=== PATIENT | female | born 1940 | race Caucasian/White ===

== ENCOUNTER 2016-11-21 10:24 | Emergency (ER) | payer MEDICARE, OTHER ==
--- NOTE | 2016-11-21 11:18 | UC ---
UC General HPI - HPI Summary HPI Summary: complaint of chronic diarrhea since 02/2016 seen in 09/2016- Dr Gross- did a fecal blood sample was positive has appt for 11/30/16 for colonoscopy more frequent diarrhea- every 20 -30 minutes and worsening for months abdominal pain and cramping before bowel movements only during the last3 days she has been vomiing approx every8 hours able to drink small amounts of water but cannot eat any solids for 3 days feel weak and fatigue , urinating more frequently- denies pain denies dizziness,fever ,shortness of breath ,chest pain - History of Current Complaint Hx Obtained From: Patient <Yadira Silva - Last Filed: 11/21/16 12:04> <Priscila Fuentes - Last Filed: 11/21/16 13:01> - History of Current Complaint Chief Complaint: UCGI Stated Complaint: VOMITING/DIARRHEA Time Seen by Provider: 11/21/16 11:05 - Allergy/Home Medications Allergies/Adverse Reactions: Allergies Allergy/AdvReac Type Severity Reaction Status Date / Time Sulfa Drugs AdvReac Nausea Verified 11/21/16 10:38 Home Medications: Home Medications Lactobacillus [Probiotic] 1 cap PO DAILY 11/21/16 [History Confirmed 11/21/16] Naproxen Sodium [Naproxen Sodium 220 mg cap] 220 mg PO PRN 11/21/16 [History] PMH/Surg Hx/FS Hx/Imm Hx Previously Healthy: No - chroinic pain Psychological History: Anxiety, Depression - Surgical History Surgical History: Yes Surgery Procedure, Year, and Place: 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; TONSILECTOMY; LUMBAR W/TITANIUM RODS; Lt TOTAL HIP - 11/27/10 - Family History Known Family History: Positive: Cardiac Disease - father, Hypertension - father Negative: Diabetes - Social History Occupation: Retired Lives: Alone Alcohol Use: Occasionally Substance Use Type: None Smoking Status (MU): Never Smoked Tobacco <Yadira Silva - Last Filed: 11/21/16 12:04> Review of Systems Constitutional: Fatigue Skin: Negative Eyes: Negative ENT: Negative Respiratory: Negative Cardiovascular: Negative Gastrointestinal: Vomiting, Diarrhea, Nausea Genitourinary: Frequency Motor: Negative Neurovascular: Negative Musculoskeletal: Negative Neurological: Negative Psychological: Negative All Other Systems Reviewed And Are Negative: Yes <Yadira Silva - Last Filed: 11/21/16 12:04> Physical Exam Triage Information Reviewed: Yes Appearance: No Pain Distress, Ill-Appearing, Thin Vital Signs: Initial Vital Signs Temp 97.5 F 11/21/16 10:30 Pulse 114 11/21/16 10:30 Resp 16 11/21/16 10:30 BP 130/54 11/21/16 10:30 Pulse Ox 99 11/21/16 10:30 Vital Signs Reviewed: Yes Eyes: Positive: Conjunctiva Clear ENT: Positive: Pharynx normal, TMs normal Neck: Positive: No Lymphadenopathy Respiratory: Positive: Lungs clear, Normal breath sounds, No respiratory distress, No accessory muscle use Cardiovascular: Positive: Pulses Normal, Tachycardia Abdomen Description: Positive: Nontender, No Organomegaly, Soft. Negative: CVA Tenderness (R), CVA Tenderness (L) Bowel Sounds: Positive: Present Musculoskeletal: Positive: No Edema Neurological: Positive: Alert Psychological Exam: Normal Skin Exam: Normal <Yadira Silva - Last Filed: 11/21/16 12:04> Vital Signs: Initial Vital Signs Temp 97.5 F 11/21/16 10:30 Pulse 114 11/21/16 10:30 Resp 16 11/21/16 10:30 BP 130/54 11/21/16 10:30 Pulse Ox 99 11/21/16 10:30 <Priscila Fuentes - Last Filed: 11/21/16 13:01> Course/Dx - Course Course Of Treatment: exam completed. patient with chronic diarrhea and acute N /V for the last 3-4 days. tachycadia- BP normla. d/t age and signs of dehydration needs further evaluation in the emergency department. pt refusesEMS transfer and will have her friend drive her to the ED for further evaluation. - Differential Dx - Multi-Symptom Provider Diagnoses: chronic diarrhea. acute nausea and vomiting <Yadira Silva - Last Filed: 11/21/16 12:04> Discharge <Yadira Silva - Last Filed: 11/21/16 12:04> <Priscila Fuentes - Last Filed: 11/21/16 13:01> - Discharge Plan Condition: Stable Disposition: HOME Patient Education Materials: Acute Nausea and Vomiting (ED), Chronic Diarrhea ( ED), Dehydration (ED) Referrals: Liu Mukherjee MD [Primary Care Provider] - Additional Instructions: It is recommended that you have your friend drive you to the emergency department for further evaluation of your nausea, vomiting and chronic diarrhea. Your pulse is elevated and you have signs and symptoms of dehydration which patty to be evaluated and treated today. Attestation Statement User Type: Provider - I was available for consult. This patient was seen by the [facility]. The patient was not presented to, seen by, or examined by me. -Moni <Priscila Fuentes - Last Filed: 11/21/16 13:01>
[2016-11-21 12:12] VITALS: BP 109/62
== END 2016-11-21 12:02 | disposition home or self-care (01) ==
LOC: UCEAST 10:24
DX: K52.9 Noninfective gastroenteritis and colitis, unspecified (principal); R11.2 Nausea with vomiting, unspecified; F41.9 Anxiety disorder, unspecified; F32.9 Major depressive disorder, single episode, unspecified; Z96.611 Presence of right artificial shoulder joint; Z96.642 Presence of left artificial hip joint; Z88.2 Allergy status to sulfonamides
CPT/HCPCS: 99211; G0463

== ENCOUNTER 2016-11-21 12:32 | Inpatient (IN) | payer MEDICARE, OTHER ==
[2016-11-21 16:24] LABS: Hematocrit 40 % (35-47); Hemoglobin 13.5 g/dl (12.0-16.0); Mean Corpuscular HGB Conc 34 g/dl (31-36); Mean Corpuscular Hemoglobin 30 pg (27-31); Mean Corpuscular Volume 90 fL (80-97); Mean Platelet Volume 8 um3 (7.4-10.4); Red Blood Count 4.46 10^6/ul (4.0-5.4); Red Cell Distribution Width 13 % (10.5-15); White Blood Count 7.6 10^3/ul (3.5-10.8)
[2016-11-21 16:43] LABS: Albumin 3.6 g/dL (3.2-5.2); BUN/Creatinine Ratio 16.2 (8-20); C Reactive Protein 94.88 mg/L (< 5.00); Calcium 9.4 mg/dL (8.6-10.3); EGFR Non-African American 32.7 (>60); Globulin 3.8 g/dL (2-4); Potassium 3.2 mmol/L (3.5-5.0); Total Bilirubin 1.2 mg/dL (0.2-1.0); Total Protein 7.4 g/dL (6.4-8.9)
[2016-11-21] MEDS ORDERED: NS 0.9% 1000 ML* 1,000 ML IV ONE (16:50)
[2016-11-21] MEDS ORDERED: Ondansetron INJ* 2 MG/ML VIAL IV ONE (16:50)
[2016-11-21 17:18] LABS: Troponin I 0.01 ng/mL (<0.04)
--- NOTE | 2016-11-21 17:40 | ADMNOTE ---
Subjective Date of Service: 11/21/16 Interval History: ADMISSION HISTORY AND PHYSICAL EXAM: Allergies Allergy/AdvReac Type Severity Reaction Status Date / Time Sulfa Drugs AdvReac Nausea Verified 11/21/16 10:38 Home Medications Medication Instructions Recorded Confirmed Type Calcium Carbonate-Vitamin D 1 tab PO DAILY 07/07/15 07/20/15 History [Calcium + D3 600-200 mg-Unit] DULoxetine DR CAP* [Cymbalta CAP*] 60 mg PO QAM 07/07/15 07/20/15 History Folic Acid TAB* [Folvite TAB*] 1 mg PO DAILY 07/07/15 07/20/15 History Magnesium [Magnesium Sulfate] 70 mg PO DAILY 07/07/15 07/20/15 History Methotrexate TAB* 4 tab PO WEEKLY 07/07/15 07/20/15 History busPIRone TAB* [Buspar TAB*] 30 mg PO TID 07/07/15 07/20/15 History traMADol TAB* [Ultram*] 50 mg PO QAM PRN 07/07/15 07/20/15 History Fish Oil 1 tab 07/20/15 History Lactobacillus [Probiotic] 1 cap PO DAILY 11/21/16 11/21/16 History Naproxen Sodium [Naproxen Sodium 220 mg PO PRN 11/21/16 History 220 mg cap] HPI: Patient developed emesis 4 days ago. Liquids and solids cme back up whenever she ate or drank. Today she only had electrolyte water. She has had diarrhea chronically and is scheduled for a colonoscopy to evaluate that. Family History: Findings - Father of [place] age 80, mother of dementia age 93. Social History: Findings - , lives alone. No alcohol or tobacco use. SDM is her ollieerica Beckford [place] in [place]. Past Medical History: Findings - PMR, last took MTX about 6 mos ago. Lumbar spine "wired". L SIMON, R shoulder replacement. BL cataract sx. Review of Systems - Measurements Intake and Output: Intake and Output Last 24 Hours 11/19/16 11/20/16 11/21/16 11/22/16 06:59 06:59 06:59 06:59 Weight 142 lb - Review of Systems Constitutional Symptoms: Positive: Weight Loss - 10 lbs. Dermatology: Positive: Normal HEENT: Positive: Normal Eyes: Positive: Normal Thyroid: Positive: Normal Pulmonary: Positive: Normal Cardiology: Positive: Normal Gastroenterology: Positive: Nausea, Vomiting, Diarrhea Genital - Urinary: Positive: Normal Musculoskeletal: Positive: Joint Pain Endocrinology: Positive: Normal Hematologic/Lymphatic: Negative: Anemia, Easy Brusing, Hx Leukemia, Hx Lymphoma, Use of Anticoagulant, Use of Antiplatelet Drugs, Other Neurology: Positive: Normal Psychiatry: Positive: Normal Allergic/Immunologic: Negative: Hx Anaphylaxis, Hx Angioedema, Hx Environmental, Hx Seasonal, Athsma, Hx HIV, Immunocompromise, Swollen Glands LymphNodes, Other Objective Active Medications: Heparin Sodium (Porcine) (Heparin Vial(*)) 5,000 units SUBCUT Q8HR МАРИ[facility] Sodium Chloride (Ns 0.9% 1000 Ml*) 1,000 mls @ 1,000 mls/hr IV .PER RATE ONE Stop: 11/21/16 17:49 Last Admin: 11/21/16 17:11 Dose: 1,000 mls/hr Potassium Chloride 20 meq/ (Lactated Ringer's) 1,010 mls @ 151.5 mls/hr IVPB Q6H [facility] Vital Signs 11/21/16 11/21/16 11/21/16 12:37 13:45 16:09 Temperature 98.2 F 97.9 F Pulse Rate 99 102 Respiratory 15 16 Rate Blood Pressure 100/66 95/58 118/58 (mmHg) O2 Sat by Pulse 100 95 Oximetry 11/21/16 11/21/16 11/21/16 16:11 16:30 17:00 Temperature Pulse Rate 89 93 89 Respiratory Rate Blood Pressure 113/60 122/67 (mmHg) O2 Sat by Pulse 100 99 100 Oximetry Oxygen Devices in Use Now: None Appearance: Alert, partly up on ED stretcher. In fair spirits. Looks comfortable. Ears/Nose/Mouth/Throat: Clear Oropharnyx, Mucous Membranes Moist Neck: NL Appearance and Movements; NL JVP, No Thyroid Enlargement, Masses Respiratory: Symmetrical Chest Expansion and Respiratory Effort, Clear to Auscultation, Clear to Percussion Cardiovascular: NL Sounds; No Murmurs; No JVD, RRR, No Edema, - Abdominal: - - Sl distended, soft, mildly diffusely tender. Gurgling BS. Extremities: No Edema, No Clubbing, Cyanosis, - Skin: No Rash or Ulcers, No Nodules or Sclerosis, - Neurological: Alert and Oriented x 3, NL Sensation Result Diagrams: 11/21/16 16:10 11/21/16 16:10 Additional Lab and Data: Lab Results 11/21/16 Range/Units 16:10 WBC 7.6 (3.5-10.8) 10^3/ul RBC 4.46 (4.0-5.4) 10^6/ul Hgb 13.5 (12.0-16.0) g/dl Hct 40 (35-47) % MCV 90 (80-97) fL MCH 30 (27-31) pg MCHC 34 (31-36) g/dl RDW 13 (10.5-15) % Plt Count 317 (150-450) 10^3/ul MPV 8 (7.4-10.4) um3 Neut % (Auto) 56.2 (38-83) % Lymph % (Auto) 24.3 L (25-47) % [place] % (Auto) 17.6 H (1-9) % Eos % (Auto) 1.1 (0-6) % Baso % (Auto) 0.8 (0-2) % Absolute Neuts (auto) 4.3 (1.5-7.7) 10^3/ul Absolute Lymphs (auto) 1.8 (1.0-4.8) 10^3/ul Absolute Monos (auto) 1.3 H (0-0.8) 10^3/ul Absolute Eos (auto) 0.1 (0-0.6) 10^3/ul Absolute Basos (auto) 0.1 (0-0.2) 10^3/ul Absolute Nucleated RBC 0 10^3/ul Nucleated RBC % 0 Assess/Plan/Problems-Billing Assessment: - Patient Problems (1) Vomiting Current Visit: Yes Status: Acute Code(s): R11.10 - VOMITING, UNSPECIFIED SNOMED Code(s): 725696536 Comment: Hx and PE c/w SBO. CT pending. Ice chips diet. IV fluid LR + KCL. (2) ROMMEL (acute kidney injury) Current Visit: Yes Status: Acute Code(s): N17.9 - ACUTE KIDNEY FAILURE, UNSPECIFIED SNOMED Code(s): 64621851 Comment: IV fluid LR + KCL. BMP 8/3. (3) Diarrhea Current Visit: Yes Status: Acute Code(s): R19.7 - DIARRHEA, UNSPECIFIED SNOMED Code(s): 55444132 Comment: Outpt colonoscopy was scheduled.
[2016-11-21] MEDS ORDERED: Iodixanol* (CONTRAST) 320 MG/ML 100 ML SDV IV ONE (19:12)
--- NOTE | 2016-11-21 20:03 | RAD ---
INDICATION: Diarrhea. Vomiting. Nausea. COMPARISON: Lumbar spine December 16, 2013 TECHNIQUE: Axial source images were obtained from the hemidiaphragms to the symphysis pubis following administration of oral and intravenous contrast. 80 mL Visipaque 320 was utilized. Coronal and sagittal reconstructed images were acquired. Lung bases: The lung bases are clear. Liver: The liver is normal in size. There are no masses. There is no ductal dilatation. Gallbladder: There are no calcified gallstones. There is no evidence of wall thickening or pericholecystic fluid. Spleen: The spleen is normal in size. There are no masses. Pancreas: There is no focal pancreatic mass. The pancreatic duct is mildly prominent. Adrenal glands: There is no evidence of adrenal mass. Kidneys: The kidneys are normal in size and position. There are prompt nephrograms and there is prompt excretion bilaterally. There are no renal parenchymal masses. There is no evidence of nephrolithiasis. Adenopathy: There is no evidence of adenopathy by size criteria. Fluid collections: There are no free or localized fluid collections. Vessels:There are mild atherosclerotic changes involving the aorta and iliac vessels. There is no focal aneurysm. The IVC appears normal. GI tract: There are no CT abnormality upper GI tract. There is minor diffuse mucosal thickening of the colon. This represents a nonspecific finding. There are no findings of obstruction or perforation. Pelvic organs: Limited evaluation due to beam hardening artifact from lumbar fusion and left hip arthroplasty. Bladder: Not well evaluated due to beam hardening artifact from orthopedic hardware. Abdominal and pelvic soft tissues: The extraperitoneal abdominal and pelvic soft tissues appear normal.. Osseous structures: Lumbar fusion T12-L4. Chronic compression deformity L2. Other: None IMPRESSION: 1. Mild nonspecific pancreatic ductal prominence. 2. Mild diffuse thickening of the colonic mucosa may be related to mild colitis. 3. L2-L4 lumbar fusion. Chronic L2 compression fracture. Left hip arthroplasty.
[2016-11-21 22:07] LABS: Urine Bacteria Absent (Absent); Urine Bilirubin Negative (Negative); Urine Glucose Negative (Negative); Urine Nitrite Negative (Negative)
[2016-11-21] MEDS: Heparin VIAL(*) 5000 UNITS/ML VIAL (FIVE THOUSAND) SUBCUT SCH (23:00)
[2016-11-22] MEDS: Heparin VIAL(*) 5000 UNITS/ML VIAL (FIVE THOUSAND) SUBCUT SCH ×3 (05:49→22:18)
[2016-11-22 05:53] LABS: Calcium 8.7 mg/dL (8.6-10.3); EGFR African American 55.5 (>60); EGFR Non-African American 43.1 (>60); Potassium 3.4 mmol/L (3.5-5.0)
--- NOTE | 2016-11-22 07:39 | PN ---
Subjective Date of Service: 11/22/16 Interval History: No pain. Somewhat thirsty. No new c/o. Family History: Findings - Father of [place] age 80, mother of dementia age 93. Social History: Findings - , lives alone. No alcohol or tobacco use. SDM is her jennifer Fernando in [place]. Past Medical History: Findings - PMR, last took MTX about 6 mos ago. Lumbar spine "wired". L SIMON, R shoulder replacement. BL cataract sx. Objective Active Medications: Heparin Sodium (Porcine) (Heparin Vial(*)) 5,000 units SUBCUT Q8HR [facility] Last Admin: 11/22/16 05:49 Dose: Not Given Potassium Chloride 20 meq/ (Lactated Ringer's) 1,010 mls @ 151.5 mls/hr IVPB Q6H [facility] Last Admin: 11/22/16 03:49 Dose: 151.5 mls/hr Vital Signs 11/21/16 11/21/16 11/21/16 17:30 17:58 18:00 Temperature 97.9 F Pulse Rate 81 81 84 Respiratory 18 Rate Blood Pressure 112/87 112/87 (mmHg) O2 Sat by Pulse 100 99 Oximetry 11/21/16 11/21/16 11/21/16 18:56 18:58 23:34 Temperature 97.7 F 97.7 F Pulse Rate 94 94 Respiratory 22 22 20 Rate Blood Pressure 133/54 133/54 (mmHg) O2 Sat by Pulse 100 100 Oximetry 11/21/16 11/22/16 23:59 03:22 Temperature 98.6 F 98.0 F Pulse Rate 81 80 Respiratory 16 16 Rate Blood Pressure 116/53 109/48 (mmHg) O2 Sat by Pulse 99 100 Oximetry Oxygen Devices in Use Now: None Appearance: Alert, sitting up in bed. In good spirits. Looks comfortable. Eyes: No Scleral Icterus Respiratory: Symmetrical Chest Expansion and Respiratory Effort, Clear to Auscultation, Clear to Percussion Cardiovascular: NL Sounds; No Murmurs; No JVD, RRR, No Edema Abdominal: NL Sounds; No Tenderness; No Distention, No Hepatosplenomegaly Extremities: No Edema, No Clubbing, Cyanosis, - Skin: No Rash or Ulcers, No Nodules or Sclerosis, - Neurological: Alert and Oriented x 3, NL Sensation Result Diagrams: 11/21/16 16:10 08/03/17 05:24 Additional Lab and Data: Lab Results 11/21/16 Range/Units 16:10 WBC 7.6 (3.5-10.8) 10^3/ul RBC 4.46 (4.0-5.4) 10^6/ul Hgb 13.5 (12.0-16.0) g/dl Hct 40 (35-47) % MCV 90 (80-97) fL MCH 30 (27-31) pg MCHC 34 (31-36) g/dl RDW 13 (10.5-15) % Plt Count 317 (150-450) 10^3/ul MPV 8 (7.4-10.4) um3 Neut % (Auto) 56.2 (38-83) % Lymph % (Auto) 24.3 L (25-47) % [place] % (Auto) 17.6 H (1-9) % Eos % (Auto) 1.1 (0-6) % Baso % (Auto) 0.8 (0-2) % Absolute Neuts (auto) 4.3 (1.5-7.7) 10^3/ul Absolute Lymphs (auto) 1.8 (1.0-4.8) 10^3/ul Absolute Monos (auto) 1.3 H (0-0.8) 10^3/ul Absolute Eos (auto) 0.1 (0-0.6) 10^3/ul Absolute Basos (auto) 0.1 (0-0.2) 10^3/ul Absolute Nucleated RBC 0 10^3/ul Nucleated RBC % 0 Assess/Plan/Problems-Billing Assessment: - Patient Problems (1) Vomiting Current Visit: Yes Status: Acute Code(s): R11.10 - VOMITING, UNSPECIFIED SNOMED Code(s): 222398010 Comment: CT shows no evidence of obstruction. Continue ice chips diet. UGI ordered. (2) ROMMEL (acute kidney injury) Current Visit: Yes Status: Acute Code(s): N17.9 - ACUTE KIDNEY FAILURE, UNSPECIFIED SNOMED Code(s): 01836128 Comment: Improved. BMP 8/4. Continue IV fluids. (3) Diarrhea Current Visit: Yes Status: Acute Code(s): R19.7 - DIARRHEA, UNSPECIFIED SNOMED Code(s): 91325692 Comment: Outpt colonoscopy was scheduled.
--- NOTE | 2016-11-22 08:50 | RAD ---
INDICATION: Emesis after eating evaluate for obstruction. COMPARISON: Correlation is made with a prior CT of the abdomen and pelvis from November 21, 2016. Technique: A single contrast upper GI series examination was performed. Approximately 2.9 minutes of intermittent fluoroscopic guidance were used during the exam. Findings: The esophageal peristalsis appeared normal. There is a small sliding type hiatal hernia. No gastroesophageal reflux was noted. The patient is status post posterior spinal fusion of the lumbar spine with pedicle screws and metallic rods which project over the stomach limiting the exam slightly. The esophageal gastric and duodenal mucosal pattern appeared to be within normal limits. No persistent filling defects or collections of barium are noted. There is no evidence for inflammatory change. The stomach emptied normally. The proximal small bowel appeared to be within normal limits. IMPRESSION: SMALL HIATAL HERNIA, OTHERWISE UNREMARKABLE STUDY. CPT II Codes: 6045F
[2016-11-22] MEDS: Loperamide CAP* 2 MG PO SCH ×2 (16:21→22:17)
[2016-11-23 05:56] LABS: BUN/Creatinine Ratio 11.7 (8-20); Calcium 8.7 mg/dL (8.6-10.3); EGFR African American 74.3 (>60); EGFR Non-African American 57.7 (>60)
[2016-11-23] MEDS: Heparin VIAL(*) 5000 UNITS/ML VIAL (FIVE THOUSAND) SUBCUT SCH (06:02)
--- NOTE | 2016-11-23 07:40 | PN ---
Progress Note - Progress Note Date of Service: 11/23/16 Note: Time spent on discharge 45 minutes.
[2016-11-23] MEDS: Loperamide CAP* 2 MG PO SCH (09:19)
[2016-11-23 09:21] VITALS: BP 118/55
--- NOTE | 2016-11-23 21:14 | DS ---
CC: Dr. Mukherjee; Dr. Cleveland DISCHARGE SUMMARY: DATE OF ADMISSION: DATE OF DISCHARGE: 11/23/16 HOSPITAL COURSE: This 76-year-old woman presented with vomiting for 4 days' duration. Both liquids and solids came back up whenever she ate or drank. On the day of admission, she only drank electrolyte water. She has chronic diarrhea and is scheduled for colonoscopy on 11/30/[address] Cleveland. The rest of the history and physical is detailed in the admission note. The patient was given intravenous fluids and antiemetics. She had a CT scan of the abdomen and pelvis and an upper GI series. She was found to have small hiatal hernia. The upper GI was otherwise unremarkable. The CT scan showed mild nonspecific pancreatic ductal prominence, mild diffuse thickening of the colonic mucosa, and an old L2-L4 lumbar fusion, and left hip arthroplasty. After these tests, the patient was able to eat or drink normally. She did have acute kidney injury. She also had hyponatremia, which I believe is related to her hypovolemia. The acute kidney injury and hyponatremia both resolved completely by the time of discharge. Her sodium was 137 on the day of discharge and creatinine 0.94, both at her baseline values. Potassium was little low at 3.0, but this should be able to be replenished from her diet. She was prescribed loperamide for her chronic diarrhea. She was told to take twice a day every day and to increase it to 3 times a day if she was having more than two bowel movements a day and to stop it completely if she had no bowel movement for 24 hours and to not to resume it until she had a bowel movement. As noted above, she is having a colonoscopy, 11/30/16. She will have less loperamide dose on the morning of 11/28/16. FINAL DIAGNOSES: 1. Transient vomiting, uncertain etiology. 2. Chronic diarrhea. 3. Acute kidney injury, resolved. 4. History of polymyalgia rheumatica. DISCHARGE MEDICATIONS: 1. Loperamide 2 mg b.i.d. to adjust as above. 2. Tramadol 50 mg every morning p.r.n. 3. Buspirone 30 mg as prescribed. 4. Duloxetine 60 mg daily. 5. Calcium carbonate with vitamin D 1 daily. 6. Magnesium sulfate as prescribed. 7. Naproxen 220 mg every 4 hours p.r.n. 8. Lactobacillus capsule daily. 9. [place]-3 fatty acids 1000 mg daily. [id number]/[facility] #: [id number] [facility]
--- NOTE | 2016-11-24 14:31 | ED ---
Janusz Durbin Rebecca, scribed for Wilver Denis MD on 11/21/16 at 1635 . Complex/Multi-Sys Presentation - HPI Summary HPI Summary: Pt is a 76 y/o F referred from [facility] who presents to ED c/o N/V/D. Diarrhea has been present since February (9 months) but has been worsening and increasing in frequency to every 20-30 minutes. Vomiting began 4 days ago with her only able to keep down small amounts of PO intake. Sx aggravated by PO intake, alleviated by nothing. Additionally notes abdominal pain (cramping), generalized weakness and feeling near-syncopal [employer]. Denies CP, SOB, fever, diaphoresis, chills. Pt has a colonoscopy scheduled for 11/30. No PMHx colitis. Patient notes that though a nurse's note reports her prison facility to be in [place], it is actually in [place]. - History Of Current Complaint Chief Complaint: EDAbdPain Time Seen by Provider: 11/21/16 16:08 Hx Obtained From: Patient Onset/Duration: Still Present Severity Currently: None Location: Pain At: - Abdominal cramping - resolved Aggravating Factor(s): PO intake Alleviating Factor(s): Nothing Associated Signs And Symptoms: Positive: Weakness - Generalized, Nausea, Vomiting, Diarrhea, Abdominal Pain - resolved. Negative: SOB, Chest Pain, Fever , Diaphoresis - Allergies/Home Medications Allergies/Adverse Reactions: Allergies Allergy/AdvReac Type Severity Reaction Status Date / Time Sulfa Drugs AdvReac Nausea Verified 11/21/16 10:38 Home Medications: Home Medications [place]-3 Fatty Acids (Nf) [Fish Oil (NF)] 1,000 mg PO DAILY 11/21/16 [History Confirmed 11/21/16] PMH/Surg Hx/FS Hx/Imm Hx Cardiovascular History: Denies: Hx Pacemaker/ICD GI History: Reports: Hx Ulcer - HX OF duodenal Musculoskeletal History: Reports: Hx Arthritis, Hx Rheumatoid Arthritis, Other Musculoskeletal History - ARTHRITIS Sensory History: Reports: Hx Cataracts - BILAT, Hx Contacts or Glasses - GLASSES Denies: Hx Hearing Aid Opthamlomology History: Reports: Hx Cataracts - BILAT, Hx Contacts or Glasses - GLASSES Psychiatric History: Reports: Hx Anxiety, Hx Depression Denies: Hx Panic Disorder - Cancer History Hx Chemotherapy: No Hx Radiation Therapy: No - Surgical History Surgery Procedure, Year, and Place: 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; TONSILECTOMY; LUMBAR W/TITANIUM RODS; Lt TOTAL HIP - 11/27/10 Hx Anesthesia Reactions: No Infectious Disease History: No Infectious Disease History: Denies: Traveled Outside the [place] in Last 30 Days - Family History Known Family History: Positive: Cardiac Disease - father, Hypertension - father Negative: Diabetes - Social History Alcohol Use: Rare Substance Use Type: Reports: None Smoking Status (MU): Never Smoked Tobacco Review of Systems Negative: Fever, Chills, Skin Diaphoresis Negative: Erythema Negative: Sore Throat Negative: Chest Pain Negative: Shortness Of Breath, Cough Positive: Abdominal Pain - Cramping - resolved, Vomiting, Diarrhea, Nausea Negative: dysuria, hematuria Negative: Myalgia, Edema Negative: Rash Neurological: Other - Negative dizziness Positive: Weakness - Generalized weakness [employer], Syncope - near syncopal [employer] All Other Systems Reviewed And Are Negative: Yes Physical Exam - Summary Physical Exam Summary: Constitutional: Well-developed, Well-nourished, Alert. (-) Distressed Skin: Warm, Dry HENT: Normocephalic; Atraumatic; Dry mucous membranes Eyes: Conjunctiva normal Neck: Musculoskeletal ROM normal neck. (-) JVD, (-) Stridor, (-) Tracheal deviation Cardio: Rhythm regular, rate normal, Heart sounds normal; Intact distal pulses; The pedal pulses are 2+ and symmetric. Radial pulses are 2+ and symmetric. (-) Murmur Pulmonary/Chest wall: Effort normal. (-) Respiratory distress, (-) Wheezes, (-) Rales Abd: Soft, (-) Tenderness, (-) Distension, (-) Guarding, (-) Rebound Musculoskeletal: (-) Edema Lymph: (-) Cervical adenopathy Neuro: Alert, Oriented x3 Psych: Mood and affect Normal Triage Information Reviewed: Yes Vital Signs On Initial Exam: Initial Vitals Temp Pulse Resp BP Pulse Ox 98.2 F 99 15 100/66 100 11/21/16 12:37 11/21/16 12:37 11/21/16 12:37 11/21/16 12:37 11/21/16 12:37 Vital Signs Reviewed: Yes - [place] Coma Scale Coma Scale Total: 15 Diagnostics - Vital Signs Vital Signs Temp Pulse Resp BP Pulse Ox 11/21/16 16:11 89 100 11/21/16 16:09 118/58 11/21/16 13:45 97.9 F 102 16 95/58 95 11/21/16 12:37 98.2 F 99 15 100/66 100 - Laboratory Lab Results: Lab Results 11/21/16 Range/Units 16:10 WBC 7.6 (3.5-10.8) 10^3/ul RBC 4.46 (4.0-5.4) 10^6/ul Hgb 13.5 (12.0-16.0) g/dl Hct 40 (35-47) % MCV 90 (80-97) fL MCH 30 (27-31) pg MCHC 34 (31-36) g/dl RDW 13 (10.5-15) % Plt Count 317 (150-450) 10^3/ul MPV 8 (7.4-10.4) um3 Neut % (Auto) 56.2 (38-83) % Lymph % (Auto) 24.3 L (25-47) % [place] % (Auto) 17.6 H (1-9) % Eos % (Auto) 1.1 (0-6) % Baso % (Auto) 0.8 (0-2) % Absolute Neuts (auto) 4.3 (1.5-7.7) 10^3/ul Absolute Lymphs (auto) 1.8 (1.0-4.8) 10^3/ul Absolute Monos (auto) 1.3 H (0-0.8) 10^3/ul Absolute Eos (auto) 0.1 (0-0.6) 10^3/ul Absolute Basos (auto) 0.1 (0-0.2) 10^3/ul Absolute Nucleated RBC 0 10^3/ul Nucleated RBC % 0 Result Diagrams: 11/21/16 16:10 11/21/16 16:10 Lab Statement: Any lab studies that have been ordered have been reviewed, and results considered in the medical decision making process. Complex Multi-Symp Course/Dx Assessment/Plan: Pt is a 76 y/o F referred from [facility] who presents to ED c/o N/V/ D. Diarrhea has been present since February (9 months) but has been worsening and increasing in frequency to every 20-30 minutes. Vomiting began 4 days ago with her only able to keep down small amounts of PO intake. Sx aggravated by PO intake. Additionally notes abdominal pain (cramping), generalized weakness and feeling near-syncopal [employer]. Denies CP, SOB, fever, diaphoresis, chills. Pt has a colonoscopy scheduled for 11/30. No PMHx colitis. Sodium of 126, CRP of 94.88, potassium of 3.2. In the ED course, pt was administered Zofran and Ns. Discussed care of pt with Dr. Ceron, hospitalist, who accepts pt for admission. She will be admitted with Dx of hyponatremia, hypokalemia, chronic diarrhea, vomiting and dizziness. She understands and agrees. Patient medications reviewed this visit. - Diagnoses Provider Diagnoses: Hyponatremia, Hypokalemia, Chronic diarrhea, Vomiting, Dizziness - Physician Notifications Discussed Care Of Patient With: Noé Ceron Time Discussed With Above Provider: 16:56 Instructed by Provider To: Other - Accepts pt for admission. Discharge - Discharge Plan Condition: Good Disposition: ADMITTED TO [facility] documentation as recorded by the Janusz anderson Rebecca accurately reflects the service I personally performed and the decisions made by me, Wilver Denis MD.
== END 2016-11-23 10:30 | disposition home or self-care (01) | DRG 392 ==
LOC: ED 12:32 → SSU 17:21
PROVIDERS: ADMIT Internal Medicine; ATTEND Internal Medicine
DX: R11.10 Vomiting, unspecified (principal); N17.9 Acute kidney failure, unspecified; E86.1 Hypovolemia; M06.9 Rheumatoid arthritis, unspecified; E87.1 Hypo-osmolality and hyponatremia; M19.90 Unspecified osteoarthritis, unspecified site; F41.9 Anxiety disorder, unspecified; F32.9 Major depressive disorder, single episode, unspecified; Z96.611 Presence of right artificial shoulder joint; R40.2412 Glasgow coma scale score 13-15, at arrival to emergency department; M35.3 Polymyalgia rheumatica; E87.6 Hypokalemia; K52.9 Noninfective gastroenteritis and colitis, unspecified; Z96.642 Presence of left artificial hip joint; K44.9 Diaphragmatic hernia without obstruction or gangrene; Z98.1 Arthrodesis status; Z88.2 Allergy status to sulfonamides; Z82.49 Family history of ischemic heart disease and other diseases of the circulatory system; Z98.42 Cataract extraction status, left eye; Z98.41 Cataract extraction status, right eye
CPT/HCPCS: 36415; 74177; 74246; 80048; 80053; 81003; 81015; 83605; 83690; 84484; 85025; 86140; 87077; 87086; 87186; 93005; 99211; 99283; A9270-GY; G0463; J1644; J2405; J3480; Q9967

== ENCOUNTER 2020-09-27 12:41 | Inpatient (IN) ==
[~2020-09-27 12:41] MED LIST: Buffered Lidocaine 1% SYRIN 1 ml INTRADERM ONE; Ketamine HCL 50 mg/ml 10 ml VIAL (500 MG) ONE; Lactated Ringers 1000 ml BAG 1,000 ML IV SCH; Lidocaine 2% PF 5 ML VIAL ONE; Propofol 10 MG/ML 20 ML BTL ONE
[2020-09-27] MEDS ORDERED: fentaNYL 100 mcg/2 ml 50 MCG/ML VIAL ONE ×4 (12:57→21:00)
[2020-09-27] MEDS ORDERED: ceFAZolin 2 GM PREMIX 2 GM/50 ML BAG ONE (13:32)
[2020-09-27] MEDS ORDERED: Rocuronium 50 mg VIAL 10 mg/ml 5 ml VIAL (50 mg) ONE ×2 (14:18→14:19)
[2020-09-27] MEDS ORDERED: fentaNYL 250 mcg/5 ml 50 MCG/ML 5 ml VIAL (250 MCG) ONE (17:06)
[2020-09-27] MEDS ORDERED: EPHEDrine (Pressors) 50 MG/ML VIAL ONE ×2 (17:32→18:34)
[2020-09-27] MEDS ORDERED: Dexamethasone IV 4 MG/ML VIAL 1 ml VIAL ONE (17:54)
[2020-09-27] MEDS ORDERED: Ondansetron 4 mg VIAL 2 MG/ML 2 ml VIAL ONE (17:54)
[2020-09-27] MEDS ORDERED: diPHENhydraMINE 25 mg TAB PO PRN (19:38)
[2020-09-27] MEDS ORDERED: Ondansetron 4 mg VIAL 2 MG/ML 2 ml VIAL IV PRN (19:38)
[2020-09-27] MEDS ORDERED: Ondansetron ODT 4 mg TAB 4 MG TAB PO PRN (19:38)
[2020-09-27] MEDS ORDERED: Morphine 2 MG/ML SYRINGE IV PRN (19:38)
[2020-09-27] MEDS ORDERED: Magnesium Hydroxide LIQ 30 ML UDC PO PRN (19:38)
[2020-09-27] MEDS ORDERED: diPHENhydraMINE IV 50 MG/ML 1 ml VIAL (BENADRYL) IV PRN (19:38)
[2020-09-27] MEDS ORDERED: Lactulose 30 ml UDC PO PRN (19:38)
[2020-09-27] MEDS ORDERED: Lactated Ringers 1000 ml BAG 1,000 ML IV SCH (20:00)
[2020-09-27] MEDS ORDERED: oxyCODONE/Acetamin 5/325 mg TAB PO PRN (20:50)
[2020-09-27] MEDS ORDERED: fentaNYL 100 mcg/2 ml 50 MCG/ML VIAL IV PRN (20:50)
[2020-09-27] MEDS ORDERED: Naloxone 0.4 mg VIAL 0.4 mg/ml 1 ml VIAL IV PRN (20:50)
[2020-09-27] MEDS ORDERED: DiMENhydriNATE IV 50 mg/ml 1 ml VIAL IV PUSH PRN (20:50)
[2020-09-27] MEDS ORDERED: DiMENhydriNATE IV 50 mg/ml 1 ml VIAL ONE (21:32)
[2020-09-27] MEDS: Magnesium Hydroxide LIQ 30 ML UDC PO SCH (22:36)
[2020-09-28] MEDS: ceFAZolin 1 GM ADVAN 1 GM in NS 0.9% 50 ML 50 ML IVPB SCH ×3 (01:46→16:29)
[2020-09-28] MEDS: oxyCODONE/Acetamin 5/325 mg TAB PO PRN ×3 (05:24→22:08)
[2020-09-28 07:11] LABS: Hematocrit 31 % (35-47); Hemoglobin 10.5 g/dL (12.0-16.0); Mean Platelet Volume 8.3 fL (7.4-10.4); Platelet Count 186 10^3/uL (150-450)
[2020-09-28 07:28] LABS: Calcium 8.7 mg/dL (8.6-10.3); EGFR African American 84.5 (>60); EGFR Non-African American 69.8 (>60); Potassium 3.9 mmol/L (3.5-5.0)
[2020-09-28] MEDS: Magnesium Hydroxide LIQ 30 ML UDC PO SCH ×2 (08:51→22:08)
[2020-09-28] MEDS: DULoxetine DR 30 mg CAP PO SCH (08:52)
[2020-09-28] MEDS: Vitamin THERAPEUTIC TAB PO SCH (08:52)
[2020-09-28] MEDS: Calcium/Vitamin D TAB 250/125 TAB PO SCH (08:52)
[2020-09-29] MEDS: Vitamin THERAPEUTIC TAB PO SCH (09:01)
[2020-09-29] MEDS: Calcium/Vitamin D TAB 250/125 TAB PO SCH (09:01)
[2020-09-29] MEDS: DULoxetine DR 30 mg CAP PO SCH (09:02)
[2020-09-29] MEDS: Magnesium Hydroxide LIQ 30 ML UDC PO SCH (09:03)
[2020-09-29 10:25] LABS: Hematocrit 30 % (35-47); Hemoglobin 10.2 g/dL (12.0-16.0); Mean Platelet Volume 8.8 fL (7.4-10.4); Platelet Count 200 10^3/uL (150-450)
[2020-09-29 11:59] VITALS: BP 106/49
[2020-09-29] MEDS: oxyCODONE/Acetamin 5/325 mg TAB PO PRN (12:23)
== END 2020-09-29 13:10 ==
LOC: SSU 12:41 → OR 12:41
PROVIDERS: ADMIT Orthopaedic Surgery Adult Reconstructive Orthopaedic Surgery; ATTEND Orthopaedic Surgery Adult Reconstructive Orthopaedic Surgery